=== PATIENT | male | born 1990 | race Caucasian/White ===

== ENCOUNTER 2018-05-02 06:44 | Observation (INO) | payer OTHER ==
[2018-05-01 14:55] LABS: BASOPHILS % 0.6 % (0.0-1.0); EOSINOPHILS # (AUTO) 0.2 (0.0-0.4); EOSINOPHILS % 3.1 % (0.0-6.0); HEMATOCRIT 39.7 % (38.2-49.6); HEMOGLOBIN 14.3 g/dL (14.0-18.0); LYMPHOCYTES # (AUTO) 2.2 (1.0-3.2); LYMPHOCYTES % 34.6 % (18.0-39.1); MEAN CORPUSCULAR HEMOGLOBIN 31.9 pg (28-32); MEAN CORPUSCULAR VOLUME 88.6 fL (81-99); MONOCYTES # (AUTO) 0.5 (0.2-0.8); MONOCYTES % 7.6 % (4.4-11.3); NEUTROPHILS # (AUTO) 3.5 (2.1-6.9); NEUTROPHILS % 53.8 % (38.7-80.0); PLATELET COUNT 269 x10e3/uL (140-360); RED BLOOD COUNT 4.48 x10e6/uL (4.3-5.7); RED CELL DISTRIBUTION WIDTH 11.8 % (11.7-14.4)
[2018-05-01 15:06] LABS: INR 1.09; PARTIAL THROMBOPLASTIN TIME 29.2 seconds (23.8-35.5); PROTHROMBIN TIME 13.3 seconds (11.9-14.5)
[2018-05-01 15:13] LABS: BLOOD UREA NITROGEN 20 mg/dL (7-26); BUN/CREATININE RATIO 18 (6-25); CALCIUM 9.9 mg/dL (8.4-10.2); CARBON DIOXIDE 25 mmol/L (22-29); CHLORIDE 102 mmol/L (98-107); EST GLOMERULAR FILTRATION RATE > 60 ML/MIN (60-); GLUCOSE 84 mg/dL (74-118); SODIUM 137 mmol/L (136-145)
[~2018-05-02] VITALS: Ht 177.8 cm; Wt 83.9 kg
[~2018-05-02 06:44] MED LIST: ALEVE220 M1 PO; NORCO 10-325 T1 EACH PO
[2018-05-02] MEDS ORDERED: BUPIVACAINE 0.5%/EPI 30 ML SDV INJ ONE (07:07)
[2018-05-02] MEDS ORDERED: GELATIN SPONGE SZ 100 ONE (07:07)
[2018-05-02] MEDS ORDERED: THROMBIN FOR SOLN 5,000 UNIT VIAL ONE (07:07)
[2018-05-02] MEDS ORDERED: BACITRACIN 50,000 UNIT VIAL ONE (07:07)
[2018-05-02] MEDS ORDERED: LIDOCAINE HCL (LTA) 4 ML SOLN ONE (07:36)
[2018-05-02] MEDS ORDERED: ACETAMINOPHEN 1000 MG/100 ML 100 ML IV ONE (07:36)
[2018-05-02] MEDS ORDERED: CEFAZOLIN SOD 1 GM VIAL ONE (07:44)
--- NOTE | 2018-05-02 08:47 | Diagnostic Imaging Report ---
PROCEDURE: X-RAY CHEST, TWO VIEWS COMPARISON: None. INDICATIONS: PREOPERATIVE CHEST XRAY FOR LUMBAR SPINE SURGERY FINDINGS: LUNGS: No consolidations or edema. PLEURA: No effusions or pneumothorax. HEART \T\ MEDIASTINUM: The heart is within normal size-limits. BONES \T\ SOFT TISSUES: No acute findings. 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 CONCLUSION: No acute thoracic abnormality. Randal Castañeda D.O. Dictated by: Randal Castañeda D.O. on 05/02/2018 at 8:28 Electronically approved by: Randal Castañeda D.O. on 05/02/2018 at 8:28
[2018-05-02] MEDS: LACTATED RINGER'S 1,000 ML IV SCH ×2 (10:37→18:57)
[2018-05-02] MEDS ORDERED: ZOLPIDEM TARTRATE 5 MG TAB PO PRN (10:45)
[2018-05-02] MEDS ORDERED: MAGNESIUM/ALUMINUM/SIMETHICONE 30 ML UDC PO PRN (10:45)
[2018-05-02] MEDS ORDERED: HYDROMORPHONE 2MG/ML 2 MG/ML ML IV PRN (10:45)
[2018-05-02] MEDS ORDERED: MORPHINE SULFATE INJ 4 MG/ML INJ IM PRN (10:45)
[2018-05-02] MEDS ORDERED: ACETAMINOPHEN 325 MG TAB PO PRN (10:45)
[2018-05-02] MEDS ORDERED: CEPACOL SORE THROAT LOZENGES PO PRN (10:45)
[2018-05-02] MEDS ORDERED: ONDANSETRON HCL INJ 2 MG/ML VIAL IV PRN (10:45)
[2018-05-02] MEDS ORDERED: PROMETHAZINE HCL (IM) 25 MG/ML VIAL IM PRN (10:45)
[2018-05-02] MEDS ORDERED: CARISOPRODOL 350 MG TAB PO PRN (10:45)
[2018-05-02] MEDS ORDERED: FENTANYL CITRATE/PF 100MCG/2 ML INJ ONE ×2 (11:03→16:44)
[2018-05-02] MEDS: OXYCODONE/ACETAMINOPHEN 5-325 1 EACH TABLET PO PRN ×2 (11:55→16:46)
[2018-05-02 11:59] VITALS: BP 138/88
[2018-05-02 13:42] VITALS: BP 138/88
[2018-05-02] MEDS ORDERED: CEFAZOLIN SOD 1 GM/D5W 50ML 50 ML IV SCH (14:00)
[2018-05-02 15:02] VITALS: BP 128/88
[2018-05-02] MEDS: CEFAZOLIN SOD 1 GM VIAL IV SCH ×2 (15:25→23:32)
[2018-05-02] MEDS ORDERED: MIDAZOLAM HCL 2 MG/2 ML VIAL ONE (16:44)
[2018-05-02] MEDS ORDERED: PROPOFOL IV EMULSION 10 MG/ML 20 ML VIAL ONE (18:07)
[2018-05-02] MEDS ORDERED: ROCURONIUM BROMIDE 10 MG/ML 5ML VIAL ONE (18:07)
[2018-05-02] MEDS ORDERED: GLYCOPYRROLATE INJ 1MG/ 5 ML SYR ONE (18:07)
[2018-05-02] MEDS ORDERED: LIDOCAINE HCL 2% JELLY 5 ML TUBE ONE (18:07)
[2018-05-02] MEDS ORDERED: ONDANSETRON HCL INJ 2 MG/ML VIAL ONE (18:07)
[2018-05-02] MEDS ORDERED: NEOSTIGMINE 5 MG/5ML SYR ONE (18:07)
[2018-05-02] MEDS ORDERED: LIDOCAINE HCL 2% LOCAL INJ 5 ML SDV VIAL INJ ONE (18:07)
[2018-05-02] MEDS ORDERED: SEVOFLURANE INHAL SOLN 250 ML PEN BTL ONE (18:07)
[2018-05-02] MEDS ORDERED: DEXAMETHASONE SOD PHOS INJ 4 MG/ML VIAL ONE (18:07)
[2018-05-02 19:10] VITALS: BP 144/90
[2018-05-02 23:04] VITALS: BP 144/90
[2018-05-03 00:15] VITALS: BP 131/74
[2018-05-03] MEDS: OXYCODONE/ACETAMINOPHEN 5-325 1 EACH TABLET PO PRN ×2 (01:07→10:00)
[2018-05-03] MEDS: LACTATED RINGER'S 1,000 ML IV SCH ×2 (03:17→11:37)
[2018-05-03 05:15] VITALS: BP 120/69
[2018-05-03] MEDS: CEFAZOLIN SOD 1 GM VIAL IV SCH (05:32)
[2018-05-03 08:18] VITALS: BP 132/74
[2018-05-03] MEDS ORDERED: NORCO 7.5-3251 EACH PO ×2 (10:09→10:10)
[2018-05-03 12:09] VITALS: BP 132/79
--- NOTE | 2018-05-10 09:51 | Operative Report ---
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 PROCEDURE: Left L5-S1 laminotomy, medial facetectomy, and microsurgical diskectomy, [id number]. ANESTHESIA: General. INDICATIONS: Patient is a 27-year-old man who presents with a very large left L5-S1 disk herniation with inferior migration of the extruded disk fragment symptomatic with severe left S1 radiculopathy refractory to conservative treatment. He was taken to the operating room for microsurgical diskectomy. PROCEDURE: After induction of general anesthesia, the patient was placed on the operating table in the prone position over a Samuel frame. Lumbar region was prepped and draped in the usual sterile fashion. A preoperative x-ray was obtained. A small midline incision was created. The lumbar fascia was opened to the left of the midline, and subperiosteal dissection was carried out to expose the left side of L5 and S1 laminae, and the medial aspect of the facet joint. A 2nd x-ray confirmed correct localization. The operating microscope was brought in. A high-speed drill equipped with kiran bur was used to drill the inferior aspect of the lamina of L5 and the superior rim of the lamina of S1, and the medial aspect of the left L5-S1 facet joint. The ligamentum flavum was resected. The dura and the S1 nerve root were exposed. The epidural veins lateral to the nerve root were bipolar coagulated and divided with microscissors. A ball probe was passed under the S1 nerve root and directed inferiorly, and used to retrieve the edge of the extruded disk material. This was grasped with a micropituitary rongeur, and a very large fragment of disk was carefully delivered out from the S1 lateral recess. The opening into the annulus of the disk was enlarged with a #11 blade, and the loose contents of the L5-S1 disk were evacuated with angled curets and pituitary rongeurs. Meticulous hemostasis was secured. The retractor was removed. The lumbar fascia was closed with 0 Vicryl sutures. Subcutaneous layer was closed with 2-0 Vicryl sutures. The skin was closed with 3-0 Monocryl sutures in a subcuticular fashion. Steri-Strips and dressing were applied. The patient was awakened, extubated and taken to the postanesthesia care unit in stable condition. No intraoperative complications were encountered. Estimated blood loss was 10 mL. Job#: [id number]
== END 2018-05-03 14:10 | disposition home or self-care (01) ==
LOC: OR 06:44 → PACU V 10:39 → IMCU 11:45
PROVIDERS: ADMIT Neurological Surgery; ATTEND Neurological Surgery
DX: M51.17 Intervertebral disc disorders with radiculopathy, lumbosacral region (principal); Z01.810 Encounter for preprocedural cardiovascular examination; Z01.812 Encounter for preprocedural laboratory examination; Z01.811 Encounter for preprocedural respiratory examination
CPT/HCPCS: 36415; 63047; 71046; 72020; 80048; 85025; 85610; 85730; 86850; 86900; 88304; 93005 ×2; G0378 ×2; J0690 ×2; J1100; J2001 ×2; J2250; J2405; J3490; J7120

== ENCOUNTER 2018-05-21 11:00 | Outpatient (RCR) | payer OTHER ==
[~2018-05-21 11:00] MED LIST changes: +NORCO 7.5-3251 EACH PO
== END 2018-05-24 ==
LOC: PT 11:00
PROVIDERS: ATTEND Neurological Surgery
DX: M51.17 Intervertebral disc disorders with radiculopathy, lumbosacral region (principal); M53.87 Other specified dorsopathies, lumbosacral region; M62.81 Muscle weakness (generalized)